=== PATIENT | female | born 1985 | race Caucasian/White ===

== ENCOUNTER 2020-05-03 20:47 | Emergency (ER) | payer OTHER ==
[~2020-05-03] VITALS: Ht 157.5 cm; Wt 63.5 kg
[2020-05-03 21:04] LABS: URINE BILIRUBIN NEGATIVE (Negative); URINE BLOOD 3+ (Negative); URINE CLARITY CLEAR; URINE COLOR YELLOW; URINE GLUCOSE-RANDOM NEGATIVE (Negative); URINE KETONES TRACE (Negative); URINE LEUKOCYTES-REFLEX NEGATIVE (Negative); URINE NITRITE-REFLEX NEGATIVE (Negative); URINE PROTEIN TRACE (Negative); URINE SPECIFIC GRAVITY 1.025 (1.005-1.030)
[2020-05-03 21:24] LABS: MUCUS >6 Heavy strn/LPF (None Seen); SQUAMOUS 4-10 Moderate /LPF (0-3); URINE RBC >20 Many /HPF (0-2); WAXY CAST 4-10 Moderate /LPF (None Seen)
[2020-05-03 21:25] LABS: BACTERIA-REFLEX 1-9 Few /HPF (None Seen); CASTS None Seen /LPF (None Seen); CRYSTALS None Seen /LPF (None Seen); URINE WBC-REFLEX 0-5 Rare /HPF (0-5)
[2020-05-03 22:18] LABS: ABSOLUTE BASOPHILS 0.1 thou/uL (0.0-0.2); ABSOLUTE EOSINOPHILS 0.1 thou/uL (0.0-0.7); ABSOLUTE LYMPHOCYTES 1.6 thou/uL (0.8-5.3); ABSOLUTE MONOCYTES 0.7 thou/uL (0.0-1.2); ABSOLUTE NEUTROPHILS 10.7 thou/uL (1.6-8.1); BASOPHILS 0.6 %; EOSINOPHILS 0.4 %; HEMATOCRIT 44.3 % (37.0-47.0); HEMOGLOBIN 14.2 gm/dL (12.0-15.0); LYMPHOCYTES 12.4 %; MCH 27.3 pg (26.0-34.0); MCV 85.3 fL (80.0-100.0); MONOCYTES 5.2 %; NUCLEATED RBCS 0 /100WBC; PLATELET COUNT* 284 thou/uL (150-400); POLYS 81.4 %; RDW-CV 14.7 % (10.5-14.5); WBC 13.1 thou/uL (4.0-11.0)
[2020-05-03 22:20] LABS: CALCIUM 8.8 mg/dL (8.5-10.1); POTASSIUM 3.1 mmol/L (3.5-5.1)
[2020-05-03] MEDS ORDERED: FLOMAX0.4 MG PO (23:11)
[2020-05-03] MEDS ORDERED: HYDROCODON-ACE1 EAC8 PO (23:11)
[2020-05-03] MEDS ORDERED: ZOFRAN ODT4 MG PO (23:11)
[2020-05-03 23:20] VITALS: BP 105/62
== END 2020-05-03 23:20 | disposition home or self-care (01) ==
LOC: M.ERS 20:47
PROVIDERS: Emergency Medicine
DX: N13.30 Unspecified hydronephrosis (principal); Z87.442 Personal history of urinary calculi

== ENCOUNTER 2020-09-27 06:03 | Emergency (ER) | payer OTHER ==
[~2020-09-27] VITALS: Ht 157.5 cm; Wt 63.5 kg
[~2020-09-27 06:03] MED LIST: FLOMAX0.4 MG PO; HYDROCODON-ACE1 EAC8 PO; ZOFRAN ODT4 MG PO
[2020-09-27 06:12] LABS: URINE BILIRUBIN NEGATIVE (Negative); URINE BLOOD 3+ (Negative); URINE CLARITY CLEAR; URINE COLOR YELLOW; URINE GLUCOSE-RANDOM NEGATIVE (Negative); URINE KETONES 2+ (Negative); URINE LEUKOCYTES-REFLEX NEGATIVE (Negative); URINE NITRITE-REFLEX NEGATIVE (Negative); URINE PROTEIN 1+ (Negative); URINE SPECIFIC GRAVITY 1.015 (1.005-1.030); URINE UROBILINOGEN 0.2 E.U./dl (0.2-1.0)
[2020-09-27 06:30] LABS: SQUAMOUS 0-3 Few /LPF (0-3); URINE RBC 3-10 Few /HPF (0-2); URINE WBC-REFLEX 0-5 Rare /HPF (0-5)
[2020-09-27 06:31] LABS: AMORPHOUS PHOSPHATES Many /LPF (None Seen); BACTERIA-REFLEX 1-9 Few /HPF (None Seen); CASTS None Seen /LPF (None Seen); MUCUS 0-3 Light strn/LPF (None Seen)
[2020-09-27 06:44] LABS: HEMATOCRIT 40.6 % (37.0-47.0); HEMOGLOBIN 13.3 gm/dL (12.0-15.0); MCH 27.4 pg (26.0-34.0); MCHC 32.8 g/dL (28.0-37.0); MCV 83.5 fL (80.0-100.0); MPV 8.7 fl. (7.2-11.1); NUCLEATED RBCS 0 /100WBC; PLATELET COUNT* 294 thou/uL (150-400); RBC 4.87 mil/uL (4.20-5.00); RDW-CV 14.5 % (10.5-14.5); WBC 15.8 thou/uL (4.0-11.0)
[2020-09-27 06:52] LABS: CALCIUM 8.9 mg/dL (8.5-10.1); CREATININE 0.9 mg/dL (0.6-1.3); POTASSIUM 3.9 mmol/L (3.5-5.1)
[2020-09-27 06:57] LABS: ALBUMIN 4.1 g/dL (3.4-5.0); TOTAL BILIRUBIN 0.7 mg/dL (<0.1-1.0); TOTAL PROTEIN 8.1 g/dL (6.4-8.2)
[2020-09-27 07:26] LABS: ABSOLUTE BASOPHILS 0.2 thou/uL (0.0-0.2); ABSOLUTE LYMPHOCYTES 0.9 thou/uL (0.8-5.3); ABSOLUTE MONOCYTES 0.5 thou/uL (0.0-1.2); ABSOLUTE NEUTROPHILS 14.2 thou/uL (1.6-8.1); ANISOCYTOSIS 1+; PLATELET ESTIMATE ADEQUATE; POIKILOCYTOSIS 1+
[2020-09-27] MEDS ORDERED: NORCO5 PO (08:37)
[2020-09-27] MEDS ORDERED: ZOFRAN ODT4 MG PO (08:37)
[2020-09-27] MEDS ORDERED: KEFLEX250 MG PO (08:38)
[2020-09-27 08:45] VITALS: BP 103/57
== END 2020-09-27 08:45 | disposition home or self-care (01) ==
LOC: M.ERS 06:03
PROVIDERS: Personal Emergency Response Attendant
DX: R11.2 Nausea with vomiting, unspecified (principal); Z87.891 Personal history of nicotine dependence